=== PATIENT | male | born 1975 ===

== ENCOUNTER 2022-07-22 14:44 | Outpatient (CLI) | payer BC, SELFPAY ==
--- NOTE | ~2022-07-22 | MR_ITS ---
EXAMINATION: MR knee RT wo/w con DATE: 07/22/2022 15:31 INDICATION: Acute onset right knee pain TECHNIQUE: Magnetic resonance imaging (MRI) of the right knee was performed without intravenous contr ast. Sequences included coronal PD-weighted FSE, coronal PD-weighted FS FSE, sagittal T2-weighted FS E, sagittal PD-weighted FS FSE and axial PD weighted fat saturated FSE. COMPARISON: None. FINDINGS: Medial compartment: Medial meniscus is normal. Small region of chondral ulceration involving less than 50% of the cartila ge thickness at the lateral aspect of the anterior weightbearing medial femoral condyle. Articular ca rtilage is otherwise normal. Lateral compartment: Lateral meniscus is normal. Articular cartilage is normal. Patellofemoral compartment: Full-thickness chondral ulceration/fissuring with underlying mild subarticular edema-like signal kim ge and enhancement at the central to the cephalad aspect of the medial trochlea. Remaining cartilage in the patellofemoral compartment is normal. Ligaments and tendons: Anterior and posterior cruciate ligaments are normal. The medial collateral ligament and fibular shiraz ateral ligament complex are normal. The extensor mechanism is normal. The visualized medial and later al hamstring tendons as well as the iliotibial band are normal. Fluid: Small right knee joint effusion with normal thin peripheral synovial enhancement. No loose osteochond ral bodies identified. Osseous/other: No fracture or pathologic marrow replacing process. No other abnormally enhancing lesions identified. IMPRESSION: 1. 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 Reviewed, dictated and finalized at location A. IMPRESSION: 1. 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
== END 2022-07-22 14:45 ==
LOC: MICIMG 14:46
PROVIDERS: PCP Nurse Practitioner; Visit Provider Nurse Practitioner
DX: M25.561 Pain in right knee (principal); M25.361 Other instability, right knee; M94.261 Chondromalacia, right knee
CPT/HCPCS: 73723; A9577